=== PATIENT | male | born 1985 | race American Indian/Alaskan Native ===

== ENCOUNTER 2017-04-22 23:28 | Emergency (ER) | payer SELFPAY ==
[2017-04-23 00:18] LABS: Basophils % (Auto) 0.6 % (0.0-1.8); Eosinophils % (Auto) 1.1 % (0.0-4.3); Hematocrit 44.3 % (35.5-45.6); Hemoglobin 14.6 gm/dl (11.8-15.2); Mean Corpuscular HGB Conc 33 % (32-34); Mean Corpuscular Hemoglobin 30 pg (28-32); Mean Corpuscular Volume 90 fl (84-94); Platelet Count 230 K/mm3 (140-440); Red Blood Count 4.91 M/mm3 (3.65-5.03); Red Cell Distribution Width 13.1 % (13.2-15.2); White Blood Count 9.2 K/mm3 (4.5-11.0)
[2017-04-23 00:25] LABS: Anion Gap 19 mmol/L; BUN/Creatinine Ratio 10; Blood Urea Nitrogen 10 mg/dL (9-20); Calcium 9.3 mg/dL (8.4-10.2); Carbon Dioxide 27 mmol/L (22-30); Chloride 98.8 mmol/L (98-107); Glucose 99 mg/dL (75-100); Potassium 4.5 mmol/L (3.6-5.0); Sodium 140 mmol/L (137-145)
[2017-04-23] MEDS ORDERED: TORADOL IM ONE (04:06)
[2017-04-23] MEDS ORDERED: CLEOCIN 900 MG/50 mL 900 MG/50 ML BAG IV ONE (04:06)
[2017-04-23] MEDS ORDERED: PERCOCET 5/325 PO ONE ×2 (04:06→08:30)
--- NOTE | 2017-04-23 04:06 | Emergency Department Report ---
ED ENT HPI - General Chief complaint: Dental/Oral Stated complaint: MOUTH ABSCESS Time Seen by Provider: 04/23/17 03:34 Source: patient, family Mode of arrival: Ambulatory Limitations: No Limitations - History of Present Illness Initial comments: Patient here with family member and he reports that he has right jaw swelling in the right lower jaw and facial area and this has been going on since last Thursday which is 4 days ago. He said he was [place] [facility] [place] and the place him on penicillin 500 mg every 6 hours which she has been taken since Thursday and swelling is getting worse and he is also on ibuprofen and he said is not helping his pain. He is reporting chills but does not report any fever pain is 10 out of 10 and achy and throbbing. Denies any difficulty breathing, sore throat, stridor, chest pain shortness of breath or difficulty swallowing. Patient said that he does not have a dentist and dentist said that they're not to be able to pull his tooth and filled abscesses resolve but it is not resolving. Patient said he is taking ibuprofen but it is not helping this pain. MD complaint: tooth pain, other (facial swelling and dental abscess) Onset/Timin -: days(s) Location: tooth # (right/upper and lower tooth.), other (right facial pain with swelling) Severity: severe Severity scale (0 -10): 10 Quality: aching, constant, other (throbbing ) Consistency: constant Improves with: none Worsens with: none Context- Dental: history of dental caries, poor dental care Associated Symptoms: gum swelling, toothache. denies: fever, cough, pain with swallowing, sore throat, tinnitus, hearing loss, discharge from ear, rhinorrhea - Related Data Allergies Allergy/AdvReac Type Severity Reaction Status Date / Time No Known Allergies Allergy Verified 04/23/17 00:13 ED Dental HPI - General Chief complaint: Dental/Oral Stated complaint: MOUTH ABSCESS Time Seen by Provider: 04/23/17 03:34 Source: patient Mode of arrival: Ambulatory Limitations: No Limitations - Related Data Allergies Allergy/AdvReac Type Severity Reaction Status Date / Time No Known Allergies Allergy Verified 04/23/17 00:13 ED Review of Systems ROS: Stated complaint: MOUTH ABSCESS Other details as noted in HPI Comment: All other systems reviewed and negative Constitutional: chills. denies: fever ENT: dental pain. denies: ear pain, throat pain, epistaxis, congestion Respiratory: no symptoms reported Cardiovascular: denies: chest pain, palpitations, dyspnea on exertion, orthopnea , edema, syncope, paroxysmal nocturnal dyspnea Gastrointestinal: denies: abdominal pain, nausea, vomiting, diarrhea, constipation Musculoskeletal: denies: back pain, joint swelling, arthralgia, myalgia Skin: denies: rash, lesions, pruritus Neurological: denies: headache, weakness, numbness, paresthesias, confusion, abnormal gait, vertigo ED Past Medical Hx - Past Medical History Previous Medical History?: No - Surgical History Past Surgical History?: No - Family History Family history: no significant - Social History Smoking Status: Never Smoker Substance Use Type: Alcohol ED Physical Exam - General Limitations: No Limitations General appearance: alert, in no apparent distress - Head Head exam: Present: atraumatic, normocephalic, normal inspection - Eye Eye exam: Present: normal appearance, PERRL, EOMI. Absent: periorbital swelling , periorbital tenderness Pupils: Present: normal accommodation - ENT ENT exam: Present: normal orophraynx, mucous membranes moist, TM's normal bilaterally, normal external ear exam. Absent: normal exam - Expanded ENT Exam Expanded Mouth exam: Present: other (abscess to right facial area. Positive induration without fluctuance. Tenderness to in her mandible right.). Absent: drooling, trismus, muffled voice, tongue normal, tongue elevation, laceration Teeth exam: Present: dental caries, dental tenderness # (right upper and lower molars), gingival enlargement, other (I sprayed gingivitis). Absent: fractured tooth # Throat exam: Positive: other (positive submental adenopathy. Uvula is midline and oral airways patent). Negative: tonsillar erythema, tonsillomegaly, tonsillar exudate, R peritonsillar mass, L peritonsillar mass - Neck Neck exam: Present: normal inspection, tenderness, full ROM. Absent: meningismus, lymphadenopathy - Respiratory Respiratory exam: Present: normal lung sounds bilaterally. Absent: respiratory distress, wheezes, rales, rhonchi, stridor, chest wall tenderness, accessory muscle use, decreased breath sounds, prolonged expiratory - Cardiovascular Cardiovascular Exam: Present: regular rate, normal rhythm, normal heart sounds. Absent: systolic murmur, diastolic murmur - GI/Abdominal GI/Abdominal exam: Present: soft, normal bowel sounds. Absent: distended, tenderness, guarding, rebound, rigid, organomegaly, mass, bruit, pulsatile mass , hernia - Extremities Exam Extremities exam: Present: normal inspection, full ROM, normal capillary refill , other (+2 pulses in all extremities, no neurovascular compromise.). Absent: tenderness, pedal edema, joint swelling, calf tenderness - Back Exam Back exam: Present: normal inspection, full ROM. Absent: tenderness, CVA tenderness (R), CVA tenderness (L), muscle spasm, paraspinal tenderness, vertebral tenderness, rash noted - Neurological Exam Neurological exam: Present: alert, oriented X3, normal gait, reflexes normal. Absent: motor sensory deficit - Psychiatric Psychiatric exam: Present: normal affect, normal mood - Skin Skin exam: Present: warm, dry, intact, normal color. Absent: rash ED Course Vital Signs 04/22/17 04/23/17 04/23/17 23:30 02:36 04:37 Temperature 100.7 F H 99.1 F Pulse Rate 88 88 Respiratory 18 18 18 Rate Blood Pressure 128/82 Blood Pressure 150/95 [Right] O2 Sat by Pulse 97 97 Oximetry 04/23/17 04/23/17 04/23/17 04:38 04:47 05:08 Temperature Pulse Rate Respiratory 18 18 18 Rate Blood Pressure Blood Pressure [Right] O2 Sat by Pulse 99 Oximetry 04/23/17 04/23/17 04/23/17 05:37 06:51 07:21 Temperature Pulse Rate Respiratory 18 18 18 Rate Blood Pressure Blood Pressure [Right] O2 Sat by Pulse Oximetry 04/23/17 04/23/17 04/23/17 07:30 08:42 08:58 Temperature 98.7 F Pulse Rate 72 Respiratory 18 18 18 Rate Blood Pressure Blood Pressure 112/80 [Right] O2 Sat by Pulse 99 Oximetry 04/23/17 09:17 Temperature 98.7 F Pulse Rate 72 Respiratory 18 Rate Blood Pressure Blood Pressure 112/70 [Right] O2 Sat by Pulse 99 Oximetry Vital Signs 04/22/17 04/23/17 04/23/17 23:30 02:36 04:37 Temperature 100.7 F H 99.1 F Pulse Rate 88 88 Respiratory 18 18 18 Rate Blood Pressure 128/82 Blood Pressure 150/95 [Right] O2 Sat by Pulse 97 97 Oximetry 04/23/17 04/23/17 04:38 04:47 Temperature Pulse Rate Respiratory 18 18 Rate Blood Pressure Blood Pressure [Right] O2 Sat by Pulse 99 Oximetry - Reevaluation(s) Reevaluation #1: 04/23/17 04:46 Patient is started on clindamycin 900 mg IV. He was given Percocet 5/325 2 tablets by mouth and Toradol 30 mg IV and emergency room. Blood cultures collected prior to clindamycin infusion. CT scan of the neck with IV contrast looking for abscess to right facial area shows cellulitis with underlying phlegmonous changes along the right side of the body of the mandible associated with dental disease involving the molars. A discrete localized abscess fellow is not seen. Small mucous retention cyst polyps in the right maxillary sinus. This was communicated with Dr. Solorio. It was agreed upon that patient should be transferred to OMFS service at [place] or [place]. Transfer center called and awaiting callback. Reevaluation #2: 04/23/17 05:04 OMFS service is not available at [place] at present therefore [place] transfer center called. Pt stable without any progression of cellulitis. Oral airway remained patent Reevaluation #3: 04/23/17 05:38 Still awaiting all OMFS called back. She is stable with no change in physical findings. He is resting quietly and pain is better. He had no adverse reaction from pain medication or antibiotics. Reevaluation #4: 04/23/17 06:19 Patient is stable and requesting pain medication. He also appears very anxious and says that he gets panic attack about situations like this. Still awaiting in while*to call back regarding transfer. Patient ordered normal saline IV fluid, Dilaudid 1 mg IV, and 4 mg IV and Valium 5 mg IV. Reevaluation #5: 04/23/17 07:[address] Dye regarding patient presentation, CT findings and clinical findings and he reports that he will see patient and that he does not think that patient have Ludwigs Angina based on CT scan and that patient could possibly be admitted in hospital and treated with antibiotic and abscess could be incision and drained. This was discussed with patient and family member and they voiced understanding. Patient pain is controlled at present with Dilaudid. - Consultations Consultation #1: 04/23/17 04:50 [facility] [place] Medical Decision Making - Lab Data Result diagrams: 04/22/17 23:52 04/22/17 23:52 Lab Results 04/22/17 04/22/17 Range/Units 23:52 23:52 WBC 9.2 (4.5-11.0) K/mm3 RBC 4.91 (3.65-5.03) M/mm3 Hgb 14.6 (11.8-15.2) gm/dl Hct 44.3 (35.5-45.6) % MCV 90 (84-94) fl MCH 30 (28-32) pg MCHC 33 (32-34) % RDW 13.1 L (13.2-15.2) % Plt Count 230 (140-440) K/mm3 Lymph % (Auto) 17.5 (13.4-35.0) % [place] % (Auto) 8.2 H (0.0-7.3) % Eos % (Auto) 1.1 (0.0-4.3) % Baso % (Auto) 0.6 (0.0-1.8) % Lymph # 1.6 (1.2-5.4) K/mm3 [place] # 0.8 (0.0-0.8) K/mm3 Eos # 0.1 (0.0-0.4) K/mm3 Baso # 0.1 (0.0-0.1) K/mm3 Seg Neutrophils % 72.6 H (40.0-70.0) % Seg Neutrophils # 6.7 (1.8-7.7) K/mm3 Sodium 140 (137-145) mmol/L Potassium 4.5 (3.6-5.0) mmol/L Chloride 98.8 (98-107) mmol/L Carbon Dioxide 27 (22-30) mmol/L Anion Gap 19 mmol/L BUN 10 (9-20) mg/dL Creatinine 1.0 (0.8-1.5) mg/dL Estimated GFR > 60 ml/min BUN/Creatinine Ratio 10 % Glucose 99 (75-100) mg/dL Calcium 9.3 (8.4-10.2) mg/dL Blood culture collected and sent prior to IV clindamycin infusion - Radiology Data Radiology results: report reviewed CT scan of the neck with IV contrast looking and right facial area. Cellulitis with underlying phlegmonous changes along the right side of the body of the mandible associated with dental disease involving the molars. A discrete localized abscess though it is not seen. - Medical Decision Making ED course: She presented to the emergency room with complaint of right facial pain and swelling. He said he was seen at [facility] on 04/22/2017 and 04/23/2017 and they gave him penicillin on 04/23/2017 by the swelling to his facial area is getting worse and he is in a lot of pain. Patient denies any difficulty breathing or swallowing. Denies cough or wheezing. He said he has been taking PCN Q6 hours as prescribed. He reports that he was given motrin without any releif. Pain 04/21. CT of neck with unsure as to reveal Critical care attestation.: If time is entered above; I have spent that time in minutes in the direct care of this critically ill patient, excluding procedure time. ED Disposition Clinical Impression: Dental disease, Toothache, Dental caries, Abscess or cellulitis, oral soft tissue Disposition: [id number] ANOTHER TYPE HLTHCARE Condition: Stable Referrals: [place], oral surgeon [Other] - 3-5 Days (If you get discharged from this hospital he will need to follow-up with oral surgeon and since he do not have any insurance and cannot afford [id number] I suggest that you go to [facility] for care. You can also follow-up at [facility] who may be able to refer you to oral surgeon in the community.) [facility] [Outside] - 3-5 Days
--- NOTE | 2017-04-23 04:35 | Cat Scan Report ---
FINAL REPORT EXAM: CT NECK W CON HISTORY: Rt lower jaw, Rt face swelling x 5 days TECHNIQUE: Routine imaging was obtained of the soft tissues of the neck following intravenous injection of 100 cc of Omnipaque 350. Sagittal and coronal reconstructions were obtained. FINDINGS: There is induration of the subcutaneous fat overlying the body of the right side of the mandible. There is heterogeneous thickening of the tissues along the margin of the body of the mandible on the right side compatible with phlegmonous changes. This area measures 4.2 cm x 1.8 cm on the axial images. There is localize dental disease involving the molars on the right side with slight breech of the cortex. Overall inflammation may be related to a dental abscess. There are benign-appearing lymph nodes in the internal jugular chains bilaterally as well as the submental group. The airway appears normal. The epiglottis appears normal. The vascular structures enhance normally. Images long skullbase show the posterior fossa to be normal. The sinuses otherwise reveal 1 cm mucous retention cyst/polyp in the right maxillary sinus. IMPRESSION: Cellulitis with underlying phlegmonous changes along the right side of the body of the mandible associated with dental disease involving the molars. A discrete localized abscess though is not seen. Small mucous retention cyst/polyp in the right maxillary sinus.
[2017-04-23] MEDS ORDERED: HYDROGEN PEROXIDE ONE (06:02)
[2017-04-23] MEDS ORDERED: ZOFRAN IV ONE (06:17)
[2017-04-23] MEDS ORDERED: VALIUM IV ONE (06:17)
[2017-04-23] MEDS ORDERED: DILAUDID IV ONE ×2 (06:17→07:20)
[2017-04-23] MEDS ORDERED: NACL 0.9% 1000 ML 1,000 ML IV ONE (06:17)
--- NOTE | 2017-04-23 08:55 | Event Note ---
Date: 04/23/17 Patient was seen and examined by me. He has been on oral antibiotics. His dental abscess has been progressing now with standing. He suffers from dental neglect in general. He is unable to open his mouth fully. He doesn't describe fever or chills or difficulty with his secretions. On physical exam the patient has palpable swelling and induration of the face at the level of the body of the mandible on the right. It is not frankly fluctuant. He has one to one and a half finger breath trismus. He is not having difficulty with his secretions. Assessment odontalgia facial abscess with trismus Plan the patient may need a dental extraction, incision and drainage and IV antibiotics at the discretion of an [facility] physician. I spoke with Dr. Zhang at [place]. He was very kind to accept this patient in transfer to the [place] emergency Department for determination of the next step. He is transferred in stable condition.
[2017-04-23 09:24] VITALS: BP 112/70
== END 2017-04-23 09:45 | disposition other institution (70) ==
LOC: ED 23:28
DX: K02.9 Dental caries, unspecified (principal); K08.89 Other specified disorders of teeth and supporting structures; K12.2 Cellulitis and abscess of mouth
CPT/HCPCS: 36415; 70491; 80048; 85025; 87040; 96361; 96365; 96372; 96375; 96376; 99285; J1170; J1885; J2405; J3360; J7030; Q9967

== ENCOUNTER 2017-08-12 10:33 | Emergency (ER) | payer SELFPAY ==
[2017-08-12 10:44] VITALS: BP 138/84
[2017-08-12] MEDS ORDERED: NORCO 5/325 PO ONE (17:42)
[2017-08-12] MEDS ORDERED: TORADOL IM ONE (17:43)
[2017-08-12] MEDS ORDERED: ZOFRAN ODT PO ONE (17:44)
--- NOTE | 2017-08-12 17:54 | Emergency Department Report ---
Upper Extremity - HPI Chief Complaint: Extremity Injury, Upper Stated Complaint: RIGHT ARM PAIN Time Seen by Provider: 08/12/17 16:49 Upper Extremity: Right Elbow Occurred When: 1 Day Severity: moderate Symptoms: Yes Pain with Movement, No Deformity, No Limited Range of Movement, No Numbness, No Weakness, No Swelling, No Bruising/Ecchymosis, No Laceration or Abrasion Other History: 32-year-old male with past medical history none presents with complaint of one day of pain above his right elbow. Patient denies any direct trauma denies any fevers chills nausea vomiting. Denies any falls. 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 Right-hand dominant. Patient denies any other symptoms. ED Review of Systems ROS: Stated complaint: RIGHT ARM PAIN Other details as noted in HPI Constitutional: denies: chills, fever Eyes: denies: eye pain, eye discharge, vision change ENT: denies: ear pain, throat pain Respiratory: denies: cough, shortness of breath, wheezing Cardiovascular: denies: chest pain, palpitations Endocrine: no symptoms reported Gastrointestinal: denies: abdominal pain, nausea, diarrhea Genitourinary: denies: urgency, dysuria Musculoskeletal: as per HPI, arthralgia (right elbow). denies: back pain, joint swelling Skin: denies: rash, lesions Neurological: denies: headache, weakness, paresthesias Psychiatric: denies: anxiety, depression Hematological/Lymphatic: denies: easy bleeding, easy bruising ED Past Medical Hx - Past Medical History Previous Medical History?: Yes Additional medical history: Multiple scars - Surgical History Past Surgical History?: No - Social History Smoking Status: Current Every Day Smoker Substance Use Type: Alcohol, Non Opiate Pain - Medications Home Medications: Home Medications Medication Instructions Recorded Confirmed Last Taken Type Acetaminophen/Codeine [Tylenol 1 tab PO Q6H PRN #12 tab 08/12/17 Unknown Rx /Codeine # 3 tab] Naproxen 500 mg PO BID PRN #30 tablet 08/12/17 Unknown Rx Upper Extremity Exam - Exam General: Vital signs noted. No distress. Alert and acting appropriately. Head and Torso: No HEENT Abnormality, No Neck Tenderness, No Chest/Lungs Abnormality, No Abdominal Tenderness, No Back Tenderness Shoulder Exam: Yes Normal Range of Motion in Shoulder, No Shoulder Tenderness, No Clavicle Tenderness, No Shoulder Deformity, No AC Joint Tenderness Arm Exam: No Arm/Humerus Tenderness, No Arm Deformity Elbow: Yes Normal Range of Motion in Elbow (elbow flexion and extension intact right elbow), No Elbow Tenderness, No Elbow Deformity Forearm: No Forearm Tenderness, No Forearm Deformity, No Pain with Pronation, No Pain with Supination Wrist: Yes Normal ROM in Wrist (right wrist flexion and extension fully intact) , No Wrist Tenderness, No Wrist Deformity, No Snuffbox Tenderness, No Pain with Axial Thumb Compression Hand: Yes Normal ROM in Digit(s) (motion DIPs PIPs and MCPs right hand fully intact on exam), No Hand Tenderness, No Hand Deformity, No Digit Tenderness, No Digit(s) Deformity, No Tendon Dysfunction CMS Exam: Yes Normal Distal Pulses (distal capillary refill and distal pulses strong to palpation), Yes Normal Capillary Refill, Yes Normal Distal Sensation, No Broken Skin Front/Back of Body, Lg (Color): 1 - Reproducible pain on deep palpation of right triceps tendon region ED Course Vital Signs 08/12/17 10:37 Temperature 98.1 F Pulse Rate 93 H Respiratory 18 Rate Blood Pressure 138/84 O2 Sat by Pulse 98 Oximetry ED Medical Decision Making - Medical Decision Making A/P: Right triceps tendinitis 1-no direct trauma. No clinical signs of infection on inspection and examination of right elbow. Right elbow flexion and extension preserved. 2-right upper extremity neurovascular exam intact 3-patient has reproducible tenderness over right triceps tendon region will treat for tendinitis with NSAIDs, short course Tylenol 3. RICE therapy right elbow 4-follow-up with primary care and orthopedics Critical care attestation.: If time is entered above; I have spent that time in minutes in the direct care of this critically ill patient, excluding procedure time. ED Disposition Clinical Impression: Tendinitis of right triceps Disposition: TO HOME OR SELFCARE Is pt being admited?: No Does the pt Need Aspirin: No Condition: Stable Instructions: Tendinitis (ED), RICE Therapy (ED) Prescriptions: Acetaminophen/Codeine [Tylenol /Codeine # 3 tab] 1 tab PO Q6H PRN #12 tab PRN Reason: Pain Naproxen 500 mg PO BID PRN #30 tablet PRN Reason: Pain Referrals: [facility] [Outside] - 3-5 Days [facility] [Outside] - 3-5 Days [facility] [Provider Group] - 3-5 Days Forms: Accompanied Note, Work/School Release Form(ED) Time of Disposition: 17:53
== END 2017-08-12 18:07 | disposition home or self-care (01) ==
LOC: ED 10:33
DX: M77.8 Other enthesopathies, not elsewhere classified (principal)
CPT/HCPCS: 96372; 99282; J1885; Q0162